=== PATIENT | male | born 1965 | race Caucasian/White ===

== ENCOUNTER 2020-03-02 00:36 | Emergency (ER) | payer BC ==
[2020-03-02 00:49] VITALS: TEMP 98.4
[2020-03-02] MEDS ORDERED: MORPHINE SULFATE 4 MG/ML SYRINGE IV STA ×2 (01:25→02:54)
[2020-03-02 02:09] LABS: Basophils % (A) 0 %; Eosinophils # (A) 0.2 k/uL (0-0.7); Eosinophils % (A) 2 %; HCT 41.4 % (39.0-53.0); HGB 13.5 gm/dL (13.0-17.5); Lymphocytes # (A) 2.6 k/uL (1.0-4.8); Lymphocytes % (A) 20 %; MCH 28.5 pg (25.0-35.0); MCHC 32.7 g/dL (31.0-37.0); MCV 87.4 fL (80.0-100.0); Mean Platelet Volume 7.1; Monocytes # (A) 0.9 k/uL (0-1.0); Monocytes % (A) 7 %; Neutrophils # (A) 9.3 k/uL (1.3-7.7); Neutrophils % (A) 70 %; Platelet Count 324 k/uL (150-450); RBC 4.74 m/uL (4.30-5.90); RDW 13.3 % (11.5-15.5); WBC 13.3 k/uL (3.8-10.6)
[2020-03-02 02:20] LABS: ALT 27 U/L (4-49); AST 26 U/L (17-59); African American GFR (CKD) >90 (>60 ml/min/1.73 sqM); Albumin 4.2 g/dL (3.5-5.0); Alkaline Phosphatase 29 U/L (38-126); Anion Gap 8 mmol/L; Blood Urea Nitrogen 18 mg/dL (9-20); Calcium 9.2 mg/dL (8.4-10.2); Carbon Dioxide 25 mmol/L (22-30); Chloride 105 mmol/L (98-107); Glucose 97 mg/dL (74-99); Non-African American GFR(CKD) >90 (>60 ml/min/1.73 sqM); Potassium 4.1 mmol/L (3.5-5.1); Sodium 138 mmol/L (137-145); Total Bilirubin 0.3 mg/dL (0.2-1.3); Total Protein 7.5 g/dL (6.3-8.2)
--- NOTE | 2020-03-02 02:22 | CT ---
EXAMINATION TYPE: CT brain wo con DATE OF EXAM: 03/02/2020 COMPARISON: None HISTORY: headache CT DLP: 1095.4 mGycm Automated exposure control for dose reduction was used. Ventricles and sulci appear normal. There is no mass effect nor midline shift. There is no sign of in tracranial hemorrhage. There is some mild subtle hypodensity right posterior frontal lobe white matte r. The calvarium is intact. Sella turcica appears normal. IMPRESSION: Subtle hypodensity right frontal lobe of uncertain significance. This could be focal small vessel isc hemia. No hemorrhage. No evidence of cortical infarct.
--- NOTE | 2020-03-02 02:23 | XR ---
EXAMINATION TYPE: XR soft tissue neck DATE OF EXAM: 03/02/2020 COMPARISON: NONE HISTORY: Pain and swelling TECHNIQUE: 2 views FINDINGS: Epiglottis is normal. Subglottic trachea appears normal. Prevertebral soft tissues appear n ormal. Mandibular ring appears intact. IMPRESSION: Negative cervical soft tissue exam.
[2020-03-02 02:33] VITALS: RESP 16
[2020-03-02] MEDS ORDERED: hydrALAZINE HCL 20 MG/ML 1 ML VIAL IVP STA (02:41)
[2020-03-02] MEDS ORDERED: METOCLOPRAMIDE 5 MG/ML 2 ML VIAL IVP STA (02:54)
[2020-03-02] MEDS ORDERED: diphenhydrAMINE 50 MG/ML 1 ML VIAL IVP STA (02:54)
--- NOTE | 2020-03-02 03:01 | ED ---
General Adult HPI - General Source: patient, family, RN notes reviewed, old records reviewed Mode of arrival: ambulatory Limitations: no limitations <Zackery Zhao - Last Filed: 03/02/20 17:22> <Hector Beard - Last Filed: 03/08/20 07:43> - General Chief complaint: ENT Stated complaint: Cellulitis Time Seen by Provider: 03/02/20 01:01 - History of Present Illness Initial comments: 55-year-old male patient past medical history of peritonsillar abscess hypertension versus ED for evaluation. Tonsillar abscess. Patient reports that he has had fullness in neck. For the last week. Was seen by his primary care provider started on clindamycin and steroids. Patient has not yet seen urinalysis and throat. Also reports that for the last 2 days he has had a generalized headache. Patient reports that when he is lying in bed the fullness in his throat made it feel transiently as he was having difficulty breathing. Denies any other areas of pain. Denies any chest pain. States that he does not feel short of breath and his lungs and felt all upper in his esophagus region. Systemic: Pt denies fatigue, fever/chills, rash. Pt denies weakness, night sweats, weight loss. Neuro: Pt denies visual disturbances, syncope or pre-syncope. HEENT: Pt denies ocular discharge or irritation, otalgia, rhinorrhea. Cardiopulmonary: Pt denies chest pain, heart palpitations, dyspnea on exertion. Abdominal/GI: Pt denies abdominal pain, n/v/d. : Pt denies dysuria, burning w/ urination, frequency/urgency. Denies new onset urinary or bowel incontinence. MSK: Pt denies myalgia, loss of strength or function in extremities. Neuro: Pt denies new onset weakness, paresthesias. (Zackery Zhao) - Related Data Allergies Allergy/AdvReac Type Severity Reaction Status Date / Time Penicillins Allergy Rash/Hives Verified 03/02/20 00:49 Review of Systems ROS Other: All systems not noted in ROS Statement are negative. <Zackery Zhao - Last Filed: 03/02/20 17:22> ROS Other: All systems not noted in ROS Statement are negative. <Hector Beard - Last Filed: 03/08/20 07:43> ROS Statement: Those systems with pertinent positive or pertinent negative responses have been documented in the HPI. Past Medical History Past Medical History: Hypertension History of Any Multi-Drug Resistant Organisms: None Reported Past Surgical History: No Surgical Hx Reported Past Psychological History: No Psychological Hx Reported Smoking Status: Never smoker Past Alcohol Use History: Rare Past Drug Use History: None Reported <Zackery Zhao - Last Filed: 03/02/20 17:22> General Exam Limitations: no limitations <Zackery Zhao - Last Filed: 03/02/20 17:22> - General Exam Comments Initial Comments: Constitutional: NAD, AOX3, Pt has pleasant affect. HEENT: NC/AT, trachea midline, neck supple, no lymphadenopathy. Posterior pharynx erythematous, peritonsillar abscess noted right-sided.. External ears appear normal, without discharge. Mucous membranes moist. Eyes PERRLA, EOM intact. There is no scleral icterus. No pallor noted. Cardiopulmonary: RRR, no murmurs, rubs or gallops, no JVD noted. Lungs CTAB in anterior and posterior brunner. No peripheral edema. Abdominal exam: Abdomen soft and non-distended. Abdomen non-tender to palpation in all 4 quadrants. Bowel sounds active in LLQ. No hepatosplenomegaly. No ecchymosis Neuro: CN II-XII intact. No nuchal rigidity. No raccon eyes, no land sign, no hemotympanum. No cervical spinal tenderness. NIH 0. MSK: No posterior calf tenderness bilaterally, homans sign negative bilaterally. Posterior tibialis and radial pulse +2 bilaterally. Sensation intact in upper and lower extremities. Full active ROM in upper and lower extremities, 5/5 stregnth. (Zackery Zhao) Course Vital Signs 03/02/20 03/02/20 03/02/20 00:44 01:54 02:32 Temperature 98.4 F Pulse Rate 74 68 62 Respiratory 18 15 16 Rate Blood Pressure 190/143 172/118 186/116 O2 Sat by Pulse 98 98 96 Oximetry 03/02/20 03/02/20 03/02/20 03:16 03:34 03:48 Temperature Pulse Rate 77 71 Respiratory 16 16 Rate Blood Pressure 191/120 144/100 147/100 O2 Sat by Pulse 98 97 Oximetry Medical Decision Making - Lab Data Result diagrams: 03/02/20 01:51 03/02/20 01:51 - EKG Data -: EKG Interpreted by Me (and Dr. Mathew ) <Zackery Zhao - Last Filed: 03/02/20 17:22> - Lab Data Result diagrams: 03/02/20 01:51 03/02/20 01:51 <Hector Beard - Last Filed: 03/08/20 07:43> - Medical Decision Making 55-year-old male patient past medical history of peritonsillar abscess hypertension versus ED for evaluation. Tonsillar abscess. Patient reports that he has had fullness in neck. For the last week. Was seen by his primary care provider started on clindamycin and steroids. Patient has not yet seen urinalysis and throat. Also reports that for the last 2 days he has had a generalized headache. Patient reports that when he is lying in bed the fullness in his throat made it feel transiently as he was having difficulty breathing. Denies any other areas of pain. Denies any chest pain. States that he does not feel short of breath and his lungs and felt all upper in his esophagus region. Patient vital signs slight hypertension. Physical exam slight peritonsillar abscess. Neurologic exam is intact. Laboratory investigations were obtained. This displayed leukocytosis. CT brain without this displayed possible subtle hypodensity right frontal lobe of uncertain significance. this could be Focal small vessel ischemia. No hemorrhage no evidence of cortical infarct. This was explained to patient. Soft tissue neck was negative. Patient administered analgesia, antihypertensive. Patient blood pressure is within acceptable limits. Incision and drainage was attempted to peritonsillar abscess. This did not display any purulent drainage. Patient will be discharged and will follow- up with ENT in the morning. Also follow up with primary care provider in 1-2 days. Will return to ER if condition worsens. Case discussed and pt seen by Dr. Mathew. (Zackery Zaho) I saw this patient in conjunction with the physician assistant operator. I performed independent history and physical exam. Agree with case management. (Hector Beard) - Lab Data Lab Results 03/02/20 03/02/20 03/02/20 Range/Units 01:51 01:51 01:51 WBC 13.3 H (3.8-10.6) k/uL RBC 4.74 (4.30-5.90) m/uL Hgb 13.5 (13.0-17.5) gm/dL Hct 41.4 (39.0-53.0) % MCV 87.4 (80.0-100.0) fL MCH 28.5 (25.0-35.0) pg MCHC 32.7 (31.0-37.0) g/dL RDW 13.3 (11.5-15.5) % Plt Count 324 (150-450) k/uL Neutrophils % 70 % Lymphocytes % 20 % Monocytes % 7 % Eosinophils % 2 % Basophils % 0 % Neutrophils # 9.3 H (1.3-7.7) k/uL Lymphocytes # 2.6 (1.0-4.8) k/uL Monocytes # 0.9 (0-1.0) k/uL Eosinophils # 0.2 (0-0.7) k/uL Basophils # 0.0 (0-0.2) k/uL Sodium 138 (137-145) mmol/L Potassium 4.1 (3.5-5.1) mmol/L Chloride 105 (98-107) mmol/L Carbon Dioxide 25 (22-30) mmol/L Anion Gap 8 mmol/L BUN 18 (9-20) mg/dL Creatinine 0.97 (0.66-1.25) mg/dL Est GFR (CKD-EPI)AfAm >90 (>60 ml/min/1.73 sqM) Est GFR (CKD-EPI)NonAf >90 (>60 ml/min/1.73 sqM) Glucose 97 (74-99) mg/dL Calcium 9.2 (8.4-10.2) mg/dL Total Bilirubin 0.3 (0.2-1.3) mg/dL AST 26 (17-59) U/L ALT 27 (4-49) U/L Alkaline Phosphatase 29 L (38-126) U/L Troponin I <0.012 (0.000-0.034) ng/mL Total Protein 7.5 (6.3-8.2) g/dL Albumin 4.2 (3.5-5.0) g/dL - EKG Data EKG Comments: Ventricular rate 69, when necessary for 162, QRS 86, QT/QTc 46 was 435. Normal concern, possible anterior infarct age undetermined. Abnormal EKG. No concern for acute ischemia at this time. (Zackery Zhao) Disposition Is patient prescribed a controlled substance at d/c from ED?: No <Zackery Zhao - Last Filed: 03/02/20 17:22> <Hector Beard - Last Filed: 03/08/20 07:43> Clinical Impression: Peritonsillar abscess, Headache, Hypertension Disposition: HOME SELF-CARE Condition: Stable Instructions (If sedation given, give patient instructions): Peritonsillar Abscess (ED), Chronic Hypertension (ED) Additional Instructions: Follow-up with ENT tomorrow. Continue taking antibiotics. Closely monitor blood pressure at home. Return to ER if condition worsens. Referrals: Don Ring DO [Primary Care Provider] - 1-2 days Toño De Santiago DO [Doctor of Osteopathic Medicine] - 1-2 days
[2020-03-02] MEDS ORDERED: LISINOPRIL 20 MG TAB PO STA (03:18)
[2020-03-02 03:36] VITALS: PULSE 71
[2020-03-02 03:50] VITALS: BP 147/100
--- NOTE | 2020-03-03 06:42 | CDI ---
Dear Zackery Zhao, PAC, Please do addendum of Incision and Drainage procedure note Thank you, Alexander Simpson Check Embosser If you have any question, Please contact railway station manager at [phone] [facility]
--- NOTE | 2020-03-24 15:53 | ED ---
Medical Decision Making - Lab Data Result diagrams: 03/02/20 01:51 03/02/20 01:51 Lab Results 03/02/20 03/02/20 03/02/20 Range/Units 01:51 01:51 01:51 WBC 13.3 H (3.8-10.6) k/uL RBC 4.74 (4.30-5.90) m/uL Hgb 13.5 (13.0-17.5) gm/dL Hct 41.4 (39.0-53.0) % MCV 87.4 (80.0-100.0) fL MCH 28.5 (25.0-35.0) pg MCHC 32.7 (31.0-37.0) g/dL RDW 13.3 (11.5-15.5) % Plt Count 324 (150-450) k/uL Neutrophils % 70 % Lymphocytes % 20 % Monocytes % 7 % Eosinophils % 2 % Basophils % 0 % Neutrophils # 9.3 H (1.3-7.7) k/uL Lymphocytes # 2.6 (1.0-4.8) k/uL Monocytes # 0.9 (0-1.0) k/uL Eosinophils # 0.2 (0-0.7) k/uL Basophils # 0.0 (0-0.2) k/uL Sodium 138 (137-145) mmol/L Potassium 4.1 (3.5-5.1) mmol/L Chloride 105 (98-107) mmol/L Carbon Dioxide 25 (22-30) mmol/L Anion Gap 8 mmol/L BUN 18 (9-20) mg/dL Creatinine 0.97 (0.66-1.25) mg/dL Est GFR (CKD-EPI)AfAm >90 (>60 ml/min/1.73 sqM) Est GFR (CKD-EPI)NonAf >90 (>60 ml/min/1.73 sqM) Glucose 97 (74-99) mg/dL Calcium 9.2 (8.4-10.2) mg/dL Total Bilirubin 0.3 (0.2-1.3) mg/dL AST 26 (17-59) U/L ALT 27 (4-49) U/L Alkaline Phosphatase 29 L (38-126) U/L Troponin I <0.012 (0.000-0.034) ng/mL Total Protein 7.5 (6.3-8.2) g/dL Albumin 4.2 (3.5-5.0) g/dL Disposition Clinical Impression: Peritonsillar abscess, Headache, Hypertension Disposition: HOME SELF-CARE Condition: Stable Instructions (If sedation given, give patient instructions): Peritonsillar Abscess (ED), Chronic Hypertension (ED) Additional Instructions: Follow-up with ENT tomorrow. Continue taking antibiotics. Closely monitor blood pressure at home. Return to ER if condition worsens. Is patient prescribed a controlled substance at d/c from ED?: No Referrals: Don Ring DO [Primary Care Provider] - 1-2 days Toño De Santiago DO [Doctor of Osteopathic Medicine] - 1-2 days Procedures - Incision & Drainage Consent Obtained: verbal consent, written consent Indication: right peritonsillar abscess Size (cm): 2 Needle Aspiration Performed?: Yes I&D Drainage Obtained: Blood Patient Tolerated Procedure: well, no complications
== END 2020-03-02 04:00 | disposition home or self-care (01) ==
LOC: EC 00:36
DX: J36 Peritonsillar abscess (principal); I10 Essential (primary) hypertension; D72.829 Elevated white blood cell count, unspecified; R51 Headache; Z88.0 Allergy status to penicillin
CPT/HCPCS: 99285; 42700; 96374; 96375 ×3; 96376; 36415; 93005; 80053; 84484; 85025; 70360; 70450; J2270; J0360; J1200; J2765

== ENCOUNTER → 2020-05-15 | Outpatient (CLI) | payer BC ==
--- NOTE | 2020-05-15 22:28 | MR ---
EXAMINATION TYPE: MR brain wo/w con DATE OF EXAM: 05/15/2020 COMPARISON: CT brain 03/02/2020 HISTORY: Abnormal CT / Headache CONTRAST: Performed utilizing 10 mL intravenous Gadavist gadolinium contrast. TECHNIQUE: Multiplanar, multiecho imaging on a 3.0 Tara magnet is performed through the brain. Stud y is performed within 24 hours of arrival to the hospital. The craniovertebral junction is normal. The pituitary is normal. Diffusion-weighted imaging is performed. No abnormal hyperintensity is present to suggest an acute i ntracranial infarct or acute ischemic change. There are scattered. Jugular deep white matter changes which are nonspecific but greater than expecte d. Microvascular ischemic change multiple sclerosis are within the differential. Other etiologies suc h as vasculitis, Lyme disease, migraine headaches could be considered. Reference lesion: Right doll radiata 0.7 cm. Series 501 image 21 No abnormal enhancement is evident. Ventricles and sulci are appropriate for the patient age. COMPARISON: The subtle subcortical white matter change on the CT examination appears to correspond to the largest white matter lesion on the inversion recovery sequences, reference lesion above. IMPRESSIONS: 1. Periventricular and subcortical white matter changes. Microvascular ischemic change and multiple s clerosis or primary within the differential. Clinical correlation and correlation with laboratory is recommended.
== END | disposition home or self-care (01) ==
LOC: RADMRIMAIN 16:39
PROVIDERS: ATTEND Family Medicine
DX: I67.82 Cerebral ischemia (principal); G35 Multiple sclerosis; R90.82 White matter disease, unspecified
CPT/HCPCS: 70553; A9585